=== PATIENT | male | born 1970 | race Caucasian/White ===

== ENCOUNTER 2016-12-11 15:43 | Emergency (ER) | payer OTHER ==
[~2016-12-11 15:43] MED LIST: DEXT5TAB27 PO; HYDR-971 PO; LISI-334 PO; MORP15TA PO; OXYC10TA PO; TRAZ-90 PO
--- NOTE | 2016-12-11 16:20 | PHYS DOC ---
General Chief Complaint: MULTIPLE COMPLAINTS Stated Complaint: MULTIPLE SYMPTOMS Time Seen by MD: 15:56 Source: patient Exam Limitations: no limitations Problems: History of Present Illness Initial Comments "I've been having chills and sweats... there's nothing really you can do for me... I need a note for work." Pt is 46/M to ED essentially requesting note for work. He says he's been alternating hot/cold today, thinks he "may have a virus." States he doesn't have money for a workup and refuses testing, says he want work excuse. No focal pain complaints or prearrival treatment, pt is vague historian. Timing/Duration: unsure Severity: mild Modifying Factors: improves with other Associated Symptoms: diaphoresis, fever/chills Allergies: Coded Allergies: No Known Drug Allergies (Unverified , 10/29/14) Past Medical History Medical History: no pertinent history Surgical History: noncontributory Social History Smoker: non-smoker Alcohol: none Drugs: none Review of Systems Constitutional: see HPI Respiratory: denies cough, denies shortness of breath Cardiovascular: denies chest pain, denies palpitations Gastrointestinal: denies diarrhea, denies nausea, denies vomiting Musculoskeletal: denies back pain, denies joint swelling, denies neck pain Psychiatric/Neurological: denies headache, denies numbness, denies paresthesia Physical Exam General Appearance: no apparent distress, obese Eyes: bilateral eye normal inspection, bilateral eye PERRL, bilateral eye EOMI Ear, Nose, Throat: hearing grossly normal, normal ENT inspection, normal pharynx Neck: non-tender, supple Respiratory: normal breath sounds, no respiratory distress Cardiovascular: normal peripheral pulses, regular rate, rhythm Gastrointestinal: non tender, soft Back: no CVA tenderness, no vertebral tenderness Extremities: non-tender, normal inspection 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 Aggressive hydration with gatorade, water. OTC tylenol/ibuprofen as needed. Work note OK to return tomorrow. Follow up with your doctor in 3-5 days if not better. Return to ED with new or changing symptoms. NANCY ACOSTA DO December 11, 2016 16:20
[2016-12-11 16:30] VITALS: BP 148/96
== END 2016-12-11 16:30 | disposition home or self-care (01) ==
LOC: ER 15:43
DX: B34.9 Viral infection, unspecified (principal)
CPT/HCPCS: 99281

== ENCOUNTER → 2017-03-11 | Outpatient (CLI) | payer OTHER ==
--- NOTE | 2017-03-11 12:38 | RAD ---
Right rib series with single view chest 03/11/2017 at 1157 hours Indication: Right-sided rib pain after fall one week ago. Comparison: None available Technique: Frontal view the chest and 2 dedicated views of the right ribs are provided. Findings: Cardiomediastinal silhouette is within normal limits. No pleural effusions, pulmonary vascular congestion or pneumothorax. The lungs are clear. There are 12 paired ribs. There is minimal displacement of anterior fourth and fifth rib fractures. There is suggestion of a nondisplaced rib fracture involving the anterolateral sixth rib. Impression: 1. Minimally displaced anterior fourth and fifth rib fractures. No pneumothorax. 2. Suggestion of a nondisplaced rib fracture involving the anterolateral sixth rib.
== END | disposition home or self-care (01) ==
LOC: DXRADRC 11:52
PROVIDERS: ATTEND Nurse Practitioner Family
DX: S22.41XA Multiple fractures of ribs, right side, initial encounter for closed fracture (principal); W19.XXXA Unspecified fall, initial encounter; Y93.89 Activity, other specified; Y92.89 Other specified places as the place of occurrence of the external cause; Y99.8 Other external cause status
CPT/HCPCS: 71101

== ENCOUNTER 2017-03-20 12:34 | Emergency (ER) | payer OTHER ==
[~2017-03-20] VITALS: Ht 165.1 cm; Wt 90.7 kg
[2017-03-20] MEDS ORDERED: DEXAMETHASONE SOD PHOS 10 MG/ML VIAL IM ONE (13:45)
[2017-03-20] MEDS ORDERED: PRED20TA PO (14:00)
--- NOTE | 2017-03-20 14:00 | PHYS DOC ---
Past History Past Medical History: No Pertinent History, Hypertension, Other Past Surgical History: Other Alcohol Use: Occasionally Drug Use: Marijuana Adult General Chief Complaint Chief Complaint: SKIN RASH/ABSCESS HPI HPI 46-year-old male with a history of being sensitive to poison libby and previously getting it via the aerosol route now presents to the emergency department after doing some work outside reporting that he thinks he has poison libby. Patient has multiple erythematous itchy lesions which are not in cyst with diffuse urticaria. He has no oropharyngeal swelling voice changes stridor wheezing or any findings to suggest systemic allergic reaction with airway involvement. Patient is comfortable and well-appearing occasionally scratching the affected areas. Review of Systems Review of Systems Constitutional: Denies fever or chills [] Eyes: Denies change in visual acuity, redness, or eye pain [] HENT: Denies nasal congestion or sore throat [] Respiratory: Denies cough or shortness of breath [] Cardiovascular: No additional information not addressed in HPI [] GI: Denies abdominal pain, nausea, vomiting, bloody stools or diarrhea [] : Denies dysuria or hematuria [] Musculoskeletal: Denies back pain or joint pain [] Integument: Denies rash or skin lesions [] Neurologic: Denies headache, focal weakness or sensory changes [] Endocrine: Denies polyuria or polydipsia [] Current Medications Current Medications Current Medications Medications (Trade) Dose Ordered Sig/Nicki Start Time Stop Time Status Last Admin Dose Admin Dexamethasone Sodium Phosphate (Decadron) 10 mg 1X ONCE 03/20/17 13:45 03/20/17 13:46 03/20/17 13:35 10 MG Allergies Allergies Allergies Coded Allergies Type Severity Reaction Last Updated Verified No Known Drug Allergies 10/29/14 No Physical Exam Physical Exam Well appearing 46-year-old male occasionally scratching upper extremities with skin lesions. No facial oral pharyngeal swelling and no stridor or wheezing. Well-appearing patient multiple skin lesions consistent with rhus dermatitis Constitutional: Well developed, well nourished, no acute distress, non-toxic appearance. [] HENT: Normocephalic, atraumatic, bilateral external ears normal, oropharynx moist, no oral exudates, nose normal. [] Eyes: PERRLA, EOMI, conjunctiva normal, no discharge. [] Neck: Normal range of motion, no tenderness, supple, no stridor. [] Cardiovascular:Heart rate regular rhythm, no murmur [] Lungs & Thorax: Bilateral breath sounds clear to auscultation [] Abdomen: Bowel sounds normal, soft, no tenderness, no masses, no pulsatile masses. [] Skin: Warm, dry, no erythema, no rash. [] Back: No tenderness, no CVA tenderness. [] Extremities: No tenderness, no cyanosis, no clubbing, ROM intact, no edema. [] Neurologic: Alert and oriented X 3, normal motor function, normal sensory function, no focal deficits noted. [] Psychologic: Affect normal, judgement normal, mood normal. [] Current Patient Data Vital Signs Vital Signs Date Time Temp Pulse Resp B/P (MAP) Pulse Ox O2 Delivery O2 Flow Rate FiO2 03/20/17 13:36 98.2 98 18 155/71 (99) 98 Room Air EKG EKG [] Radiology/Procedures Radiology/Procedures [] Course & Med Decision Making Course & Med Decision Making Pertinent Labs and Imaging studies reviewed. (See chart for details) Signs and symptoms consistent with poison libby. Decadron shot given IM. Patient aware to finish prednisone as prescribed and use Benadryl and Pepcid for antihistamine effect. She will use any [id number] symptomatic treatment seem a desire and follow-up with his primary care doctor in 2-3 days for reevaluation and referral to dermatology for any concerns. The patient reason with outpatient follow-up and strict return precautions given. [] Dragon Disclaimer Dragon Disclaimer This chart was dictated in whole or in part using Voice Recognition software in a busy, high-work load, and often noisy Emergency Department environment. It may contain unintended and wholly unrecognized errors or omissions. Departure Departure: Impression: Primary Impression: Poison libby Additional Impressions: Dermatitis Pruritus Disposition: HOME, SELF-CARE Condition: IMPROVED Referrals: PCP,NO (PCP) Patient Instructions: Poison Libby Additional Instructions: It appears that you have poison libby. Finish prednisone as prescribed starting tomorrow. Use any [id number] treatments for symptomatically relief of itching that you might desire [place] such as calamine lotion. You could consider a topical steroid cream such as 1% hydrocortisone. Take Benadryl and Pepcid are both [id number] as needed for itching. These are both antihistamines. The aware of Benadryl may make you slightly sleepy since do not drive or operate machinery or work if your on this medicine. Follow-up with your doctor in 1-2 days and return immediately for new severe worsening symptoms Scripts Prednisone (PREDNISONE) 20 Mg Tablet 60 MG PO DAILY for 7 Days, #21 TAB Please dispense 20 milligram tablets. The patient will take (3)b 20 mg tablets with breakfast daily for 7 days starting tomorrow Prov: JACQUES MOISE MD 03/20/17 Problem Qualifiers JACQUES MOISE MD Mar 20, 2017 14:00
[2017-03-20 14:09] VITALS: BP 150/93
== END 2017-03-20 14:11 | disposition home or self-care (01) ==
LOC: ER 12:34
DX: L23.7 Allergic contact dermatitis due to plants, except food (principal); I10 Essential (primary) hypertension
CPT/HCPCS: 96372; 99283; J1100